=== PATIENT | male | born 1995 | race African-American/Black ===

== ENCOUNTER 2017-12-24 19:34 | Emergency (ER) | payer OTHER ==
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
[2017-12-24 19:45] VITALS: TEMP 97.9; BMI 24.7
[2017-12-24] MEDS ORDERED: TETANUS AND DIPHTHERIA TOXOID 0.5 ML DISP.SYRIN IM ONE (20:48)
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
[2017-12-24 21:42] LABS: BASO % 0.2 % (0-2.0); HEMATOCRIT 41.1 % (35.4-49); HEMOGLOBIN 13.9 GM/dL (11.7-16.9); LYMPH % 7.8 % (8-40); MCH 29.9 pg (25.7-33.7); MCHC 33.8 g/dl (32.0-35.9); MEAN CELL VOLUME 88.5 fl (80-96); MEAN PLT VOLUME 8.5 fl (7.5-11.1); MONO % 7.7 % (3.8-10.2); NEUT % 84.3 % (42.8-82.8); PLATELET COUNT 236 K/MM3 (134-434); RBC 4.65 M/mm3 (4.00-5.60); RDW 13.4 % (11.9-15.9); WHITE BLOOD COUNT 10.5 K/mm3 (4.0-10.0)
[2017-12-24] MEDS ORDERED: AMPICILLIN NA/SULBACTAM NA 3 GM in SODIUM CHLORIDE 100 ML IVPB ONE (21:59)
[2017-12-24] MEDS ORDERED: morphine CARPU-JECT 4 MG/1 ML DISP.SYRIN IVPUSH ONE (22:03)
[2017-12-24 22:06] LABS: INR 1.12 (0.82-1.09); PROTHROMBIN TIME (PATIENT) 12.6 SEC (9.98-11.88)
[2017-12-24] MEDS ORDERED: morphine SULFATE 4 MG/ML VIAL ONE (22:07)
[2017-12-24 22:08] LABS: ACTIVATED PTT 28.2 SECONDS (26.9-34.4)
[2017-12-24 22:09] LABS: ANION GAP 7 (8-16); BILIRUBIN,TOTAL 0.4 mg/dL (0.2-1.0); BLOOD UREA NITROGEN 10 mg/dL (7-18); CALCIUM 9.2 mg/dL (8.5-10.1); CHLORIDE 103 mmol/L (98-107); CO2 29 mmol/L (21-32); CREATININE 0.9 mg/dL (0.7-1.3); GLUCOSE,RANDOM 102 mg/dL (74-106); POTASSIUM 4.4 mmol/L (3.5-5.1); SGOT/AST 19 U/L (15-37); SGPT/ALT 14 U/L (12-78); SODIUM 139 mmol/L (136-145); TOT PROT 7.3 g/dl (6.4-8.2)
[2017-12-24 22:10] LABS: ALK PHOS 78 U/L (45-117)
[2017-12-24 22:12] VITALS: BP 106/68; PULSE 60
--- NOTE | 2017-12-24 22:12 | PDOC ---
*Physical Exam - Vital Signs Last Vital Signs Temp Pulse Resp BP Pulse Ox 97.9 F 60 18 106/68 98 12/24/17 19:42 12/24/17 22:12 12/24/17 22:12 12/24/17 22:12 12/24/17 22:12 <Sirena Larsen - Last Filed: 12/24/17 22:38> - Vital Signs Last Vital Signs Temp Pulse Resp BP Pulse Ox 97.9 F 59 L 18 108/60 99 12/24/17 19:42 12/24/17 19:42 12/24/17 19:42 12/24/17 19:42 12/24/17 19:42 - Physical Exam Comments: 12/24/17 22:08 L eyelid hematoma proptosis of L eye EOMI pupils 3mm and reactive no teardrop pupil laceration to sclera no c spine ttp neuro intact, muscle strength intact nasal ttp no septal hematoma ttp across L zygomatic arch, ttp across frontal bone 12/24/17 22:45 <Peyton Robles - Last Filed: 12/24/17 22:46> ED Treatment Course - LABORATORY CBC & Chemistry Diagram: 12/24/17 21:31 12/24/17 21:31 - ADDITIONAL ORDERS Additional order review: Laboratory Results 12/24/17 12/24/17 21:31 21:31 PT with INR 12.60 H INR 1.12 PTT (Actin FS) 28.2 Sodium 139 Potassium 4.4 Chloride 103 Carbon Dioxide 29 Anion Gap 7 L BUN 10 Creatinine 0.9 Creat Clearance w eGFR > 60 Random Glucose 102 Calcium 9.2 Total Bilirubin 0.4 AST 19 ALT 14 Alkaline Phosphatase 78 Total Protein 7.3 Albumin 4.0 12/24/17 21:31 RBC 4.65 MCV 88.5 MCHC 33.8 RDW 13.4 MPV 8.5 Neutrophils % 84.3 H Lymphocytes % 7.8 L Monocytes % 7.7 Eosinophils % 0.0 Basophils % 0.2 - Medications Given in the ED: ED Medications Discontinued Medications Generic Name Dose Route Start Last Admin Trade Name Freq PRN Reason Stop Dose Admin Ampicillin Sodium/Sulbactam 100 mls @ 200 mls/hr 12/24/17 21:59 12/24/17 22: 21 Sodium 3 gm/ Sodium Chloride IVPB 12/24/17 22:28 200 mls/hr ONCE ONE Administration Morphine Sulfate 4 mg 12/24/17 22:03 12/24/17 22:07 Morphine Injection - IVPUSH 12/24/17 22:04 4 mg ONCE ONE Administration Tetanus/Diphtheria Toxoids Adsorbed 0.5 ml 12/24/17 20:48 12/24/17 20:51 Decavac IM 12/24/17 20:49 0.5 ml .ONCE ONE Administration <Sirena Larsen - Last Filed: 12/24/17 22:38> - LABORATORY CBC & Chemistry Diagram: 12/24/17 21:31 12/24/17 21:31 - ADDITIONAL ORDERS Additional order review: 12/24/17 21:31 RBC 4.65 MCV 88.5 MCHC 33.8 RDW 13.4 MPV 8.5 Neutrophils % 84.3 H Lymphocytes % 7.8 L Monocytes % 7.7 Eosinophils % 0.0 Basophils % 0.2 - Medications Given in the ED: ED Medications Discontinued Medications Generic Name Dose Route Start Last Admin Trade Name Alfredq PRN Reason Stop Dose Admin Tetanus/Diphtheria Toxoids Adsorbed 0.5 ml 12/24/17 20:48 12/24/17 20:51 Decavac IM 12/24/17 20:49 0.5 ml .ONCE ONE Administration <Peyton Robles - Last Filed: 12/24/17 22:46> Medical Decision Making - Medical Decision Making 12/24/17 22:38 Medics at bedside to transport patient to [facility]. <Sirena Larsen - Last Filed: 12/24/17 22:38> - Medical Decision Making 12/24/17 22:04 discussed imaging results with radiology - hematoma to medial rectus muscle. no rapidly expanding retrobulbar hematoma, no retrobulbar hematoma visualized on ct at this time. pupils 4mm and reactive EOMI intact proptosis of L eye large eccmyosis to L eye laceration to top of lid, no bleeding discussed with dr. Hastings from [facility] - accepts pt in transfer call has been placed to Dr. Cunningham (ophtho) pending call back 12/24/17 22:12 pt states he is unable to see discussed with radiology - no sign of retinal detachment re-eval: still with EOMI, pupil still 4mm and reactive awaiting transportation to [facility] 12/24/17 22:31 re-eval: pupils 4mm and reactive eomi 12/24/17 22:45 pupils 4mm and reactive eomi laceration to sclera medics at the bedside to transport the patient to [facility] <Peyton Robles - Last Filed: 12/24/17 22:46> *DC/Admit/Observation/Transfer <Sirena Larsen - Last Filed: 12/24/17 22:38> - Transfer to Acute Care Facility Receiving Facility: [facility]. Accepting Physician:: Dr. Hastings <Peyton Robles - Last Filed: 12/24/17 22:46> Diagnosis at time of Disposition: Vision abnormalities Head injury Qualifiers: Encounter type: initial encounter Qualified Code(s): S09.90XA - Unspecified injury of head, initial encounter Right orbit trauma Qualifiers: Encounter type: initial encounter Qualified Code(s): S05.91XA - Unspecified injury of right eye and orbit, initial encounter Concussion Qualifiers: Encounter type: initial encounter Loss of consciousness presence/duration: without LOC Qualified Code(s): S06.0X0A - Concussion without loss of consciousness, initial encounter - Discharge Dispostion Disposition: TRANSFER ACUTE CARE/OTHER HOSP Condition at time of disposition: Guarded
== END 2017-12-24 22:46 | disposition short-term general hospital (02) ==
LOC: JER 19:34
PROC: 3E0234Z Introduction of Serum, Toxoid and Vaccine into Muscle, Percutaneous Approach (ICD-10-PCS; principal; 2017-12-24)
DX: S05.91XA Unspecified injury of right eye and orbit, initial encounter (principal); S09.90XA Unspecified injury of head, initial encounter; W22.8XXA Striking against or struck by other objects, initial encounter; Y93.89 Activity, other specified; Y92.9 Unspecified place or not applicable
CPT/HCPCS: 36415; 70450-TC; 70480-TC; 80053; 85025; 85610; 85730; 86850; 86900; 86901; 99285-25

== ENCOUNTER 2025-05-22 00:28 | Emergency (ER) | payer OTHER ==
[2025-05-22 00:39] VITALS: BP 132/83; PULSE 82; RESP 18; TEMP 98.2; BMI 20.1
[2025-05-22] MEDS: LIDOCAINE 5% TOPICAL PATCH TP ONE (02:02)
[2025-05-22] MEDS: ACETAMINOPHEN 500 MG TABLET (FP) PO ONE (02:02)
[2025-05-22] MEDS ORDERED: LIDOCAINE 4% PATCH TP ONE (02:03)
[2025-05-22] MEDS ORDERED: ACETAMINOPHEN 500 MG TABLET (FP) ONE (02:03)
[2025-05-22] MEDS ORDERED: LIDOCAINE PATCH REMOVAL MC SCH (22:00)
== END 2025-05-22 02:41 | disposition home or self-care (01) ==
LOC: JER 00:28
DX: R07.2 Precordial pain (principal); M54.6 Pain in thoracic spine; M54.2 Cervicalgia
CPT/HCPCS: 71046-TC-FY; 93005; 93010; 99284-25